=== PATIENT | female | born 1955 | race Caucasian/White ===

== ENCOUNTER 2017-04-13 13:31 | Emergency (ER) | payer OTHER ==
[~2017-04-13] VITALS: Ht 165.1 cm; Wt 77.1 kg
[2017-04-13] MEDS ORDERED: NACL 0.9% 1,000 ML IV ONE (13:32)
[2017-04-13 13:34] VITALS: BP_SYST 145
[2017-04-13] MEDS ORDERED: KETOROLAC TROMETHAMINE 30 MG VIAL IVP ONE (13:45)
[2017-04-13] MEDS ORDERED: LORazepam 2 MG/ML VIAL (FOR ER USE) IVP ONE (13:45)
[2017-04-13] MEDS ORDERED: ONDANSETRON HCL 4 MG/2 ML VIAL IVP ONE (13:45)
[2017-04-13 14:15] LABS: HEMATOCRIT 44.3 % (36-48); HEMOGLOBIN 14.6 g/dL (12.0-16.0); MEAN CORPUSCULAR HEMOGLOBIN 31 pg (27-31); MEAN CORPUSCULAR HGB CONC 33 % (32-36); MEAN CORPUSCULAR VOLUME 93 fL (79.0-98.0); PLATELET COUNT (AUTO) 363 K/uL (130-430); RED BLOOD CELL COUNT(AUTO) 4.79 MIL/uL (4.2-6.2); RED CELL DISTRIBUTION WIDTH 14.5 % (9.0-15.0); WHITE BLOOD COUNT (AUTO) 18.7 K/uL (4.8-10.8)
[2017-04-13 14:21] LABS: CALCIUM 9.6 mg/dL (8.4-11.0); CREATININE 0.99 mg/dL (0.55-1.30); POTASSIUM 4.1 mmol/L (3.5-5.1)
[2017-04-13 14:27] LABS: ALBUMIN 3.5 g/dL (3.4-4.8); TOTAL BILIRUBIN 5.1 mg/dL (0.0-1.0); TOTAL PROTEIN, SERUM 7.6 g/dL (6.4-8.3)
[2017-04-13 14:32] LABS: BAND % (MANUAL) 1 % (0-6); BASOPHILS % (MANUAL) 0 % (0-2); EOSINOPHILS % (MANUAL) 0 % (0-7); LYMPHOCYTES % (MANUAL) 30 % (20-46); MONOCYTES % (MANUAL) 9 % (0-11)
[2017-04-13] MEDS ORDERED: PIPERACILLIN/TAZO 3.375 GM in NS 50 ML IV ONE (14:45)
[2017-04-13] MEDS ORDERED: MORPHINE 4 MG/ML INJ. SYRINGE IVP ONE (14:45)
[2017-04-13] MEDS ORDERED: PIPERACILLIN/TAZOBACTAM 3.375 GM/VIAL (ZOSYN) IV ONE (14:56)
[2017-04-13 14:57] LABS: PROTHROMBIN TIME 10.4 SECS (9.5-12.5)
[2017-04-13] MEDS ORDERED: HYDROmorphone 1 MG INJ. 1 MG/ML AMPUL IVP ONE (15:45)
[2017-04-13 16:40] VITALS: BP_SYST 135
[2017-04-13 16:50] LABS: BILIRUBIN,URINE 2+ (NEGATIVE); BLOOD, URINE 1+ (NEGATIVE); CLARITY/URINE CLEAR (CLEAR); COLOR,URINE YELLOW (YELLOW); GLUCOSE,URINE NEGATIVE (NEGATIVE); KETONES,URINE TRACE (NEGATIVE); LEUKOCYTE ESTERASE ,URINE 1+ (NEGATIVE); NITRITE, URINE NEGATIVE (NEGATIVE); PROTEIN URINE 1+ (NEGATIVE)
[2017-04-13 16:57] LABS: BACTERIA,URINE FEW /HPF (None Seen); MUCUS,URINE None Seen /LPF (None Seen)
== END 2017-04-13 16:40 | disposition short-term general hospital (02) ==
LOC: SED 13:31
DX: K81.0 Acute cholecystitis (principal)
CPT/HCPCS: 36415; 71010; 74176; 76705; 80053; 81000; 82150; 83605; 83690; 85007; 85027; 85610; 85730; 87040; 87086; 93005; 96365; 96375; 99285; J1170; J1885; J2270; J2405; J2543; J7030

== ENCOUNTER 2022-09-25 13:57 | Emergency (ER) | payer OTHER ==
[~2022-09-25] VITALS: Ht 162.6 cm; Wt 68.9 kg
[2022-09-25 14:00] VITALS: BP_SYST 135
--- NOTE | 2022-09-25 14:04 | NUR ---
PT BIBA AWAKE AND ALERT AOX4, NO SOB OR DISTRESS. PT C/O R FLANK PAIN X2 DAYS. PT IS NAUSEOUS NUT DENIES VOMITING AND DIAHREA. PT STATES PAIN 5/10. PT HAS HX OF HAVE GALLE BLADDER REMOVED.
--- NOTE | 2022-09-25 14:06 | NUR ---
Fern up in [facility] - 09/25/22 at [address] PARISH AT BEDSIDE
--- NOTE | 2022-09-25 14:13 | NUR ---
MD DR JUAREZ AT BEDSIDE
[2022-09-25] MEDS: KETOROLAC TROMETHAMINE 30 MG VIAL IM ONE (14:51)
[2022-09-25] MEDS: NACL 0.9% 1,000 ML IV ONE (14:53)
[2022-09-25] MEDS: ONDANSETRON HCL 4 MG/2 ML VIAL IVP ONE (14:55)
[2022-09-25 14:57] LABS: EOSINOPHILS # (AUTO) 0.1 K/uL (0.0-0.4); EOSINOPHILS % (AUTO) 1.1 % (0.0-4.0); HEMATOCRIT 41.3 % (36-48); HEMOGLOBIN 13.9 g/dL (12.0-16.0); LYMPHOCYTES # (AUTO) 1.5 K/uL (1.0-5.5); LYMPHOCYTES % (AUTO) 21.7 % (20.5-51.5); MEAN CORPUSCULAR HEMOGLOBIN 31 pg (27-31); MEAN CORPUSCULAR HGB CONC 34 % (32-36); MEAN CORPUSCULAR VOLUME 93 fL (79.0-98.0); MONOCYTES # (AUTO) 0.5 K/uL (0.0-1.0); MONOCYTES % (AUTO) 7.5 % (1.7-9.3); PLATELET COUNT (AUTO) 295 K/uL (130-430); RED BLOOD CELL COUNT(AUTO) 4.43 MIL/uL (4.2-6.2); RED CELL DISTRIBUTION WIDTH 14.2 % (9.0-15.0); WHITE BLOOD COUNT (AUTO) 7.1 K/uL (4.8-10.8)
[2022-09-25 15:01] LABS: CALCIUM 8.7 mg/dL (8.4-11.0); CREATININE 0.75 mg/dL (0.55-1.30)
[2022-09-25 15:03] LABS: BASOPHILS % (AUTO) 0.5 % (0.0-2.0); NEUTROPHILS # (AUTO) 4.9 K/uL (1.8-7.7); NEUTROPHILS % (AUTO) 69.2 % (40.0-70.0)
[2022-09-25 15:08] LABS: ALBUMIN 3.7 g/dL (3.4-4.8)
[2022-09-25 15:29] LABS: BILIRUBIN,URINE NEGATIVE (NEGATIVE); CLARITY/URINE CLEAR (CLEAR); COLOR,URINE YELLOW (YELLOW); GLUCOSE,URINE NEGATIVE (NEGATIVE); KETONES,URINE NEGATIVE (NEGATIVE); LEUKOCYTE ESTERASE ,URINE NEGATIVE (NEGATIVE); NITRITE, URINE NEGATIVE (NEGATIVE); PH,URINE 5.5 (5.0-8.0); PROTEIN URINE NEGATIVE (NEGATIVE); UROBILINOGEN,URINE 0.2 (0.2-1.0)
[2022-09-25 15:35] LABS: BLOOD, URINE TRACE (NEGATIVE)
[2022-09-25 15:41] LABS: BACTERIA,URINE RARE /HPF (None Seen); FINE GRANULAR CASTS,URINE 0-10 /LPF (None Seen); MUCUS,URINE None Seen /LPF (None Seen); RBC,URINE 0-3 /HPF (0-3); WBC,URINE 0-3 /HPF (0-3)
[2022-09-25] MEDS ORDERED: IBUP-1971 PO (17:41)
[2022-09-25] MEDS ORDERED: ONDA-8 TL (17:41)
[2022-09-25 17:52] VITALS: BP_SYST 135
--- NOTE | 2022-09-25 17:54 | NUR ---
Patient given written and verbal discharge instructions and verbalizes understanding. ER MD DR ROONEY discussed with patient the results and treatment provided. Patient in stable condition. ID arm band removed. IV catheter removed intact and dressing applied, no active bleeding. Rx of MOTRIN AND ZOFRAN given. Patient educated on pain management and to follow up with PMD. Pain Scale 4/10. Opportunity for questions provided and answered. Medication side effect fact sheet provided.
== END 2022-09-25 17:52 | disposition home or self-care (01) ==
LOC: SED 13:57
DX: B34.9 Viral infection, unspecified (principal); R10.9 Unspecified abdominal pain; R11.2 Nausea with vomiting, unspecified; Z79.899 Other long term (current) drug therapy; Z20.822 Contact with and (suspected) exposure to COVID-19
CPT/HCPCS: 99285; 74176; 96374; 71045; 87426; 80053; 81000; 85025; 36415; 76376; 96372; 87804 ×2; J1885; J2405; J7030